=== PATIENT | male | born 1990 | race Caucasian/White ===

== ENCOUNTER 2024-08-16 18:44 | Emergency (ER) | payer SELFPAY ==
[2024-08-16 18:56] VITALS: BP 123/85; PULSE 70; RESP 20; TEMP 36.9; O2SAT 99; BMI 38.7
--- NOTE | 2024-08-16 18:58 | XRR_ITS ---
PROCEDURE INFORMATION: Exam: XR Chest Exam date and time: 08/16/2024 7:01 PM Age: 33 years old Clinical indication: Shortness of breath; Additional info: SOB TECHNIQUE: Imaging protocol: Radiologic exam of the chest. Views: 1 view. COMPARISON: No relevant prior studies available. FINDINGS: Lungs: Patient is rotated to the left. Equivocal reticular opacity noted at the left lung base. Lungs are otherwise clear. Pleural spaces: No pleural effusion. No pneumothorax. Heart/Mediastinum: Cardiac silhouette is normal in size for technique. Bones/joints: Age appropriate. XR/XR chest 1V portable [id number] IMPRESSION: Equivocal reticular opacity at the left lung base. Findings could reflect mild atelectasis or developing pneumonitis. Unfortunately, because patient is rotated to the left, findings could also be artifactual. Correlate with physical exam.
--- NOTE | 2024-08-16 18:58 | ECG_ITS ---
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
[2024-08-16 19:28] LABS: Hematocrit 43.8 % (37-53); Hemoglobin 14.80 g/dL (11.27-16.99); Mean Corpuscular HGB Conc 33.8 g/dL (30-55); Mean Corpuscular Hemoglobin 29.0 pg (27-33); Mean Corpuscular Volume 85.9 fl (82-101); Nucleated Red Blood Cells % 0 %; Platelet Count 306 10^3/cmm (157-399); Red Blood Count 5.10 10^6/uL (3.85-5.65); White Blood Count 10.68 10^3/uL (3.29-11.43)
[2024-08-16 19:46] LABS: Troponin(5th) Baseline < 6 ng/L (0-15)
[2024-08-16 19:50] LABS: Alanine Aminotransferase 22 U/L (0-41); Albumin Level 4.5 g/dL (3.5-5.2); Alkaline Phosphatase 66 U/L (40-130); Anion Gap 17.2 (5-19); Aspartate Amino Transferase 17 U/L (0-40); Blood Urea Nitrogen 14 mg/dL (6-20); Calcium 9.4 mg/dL (8.5-10.5); Carbon Dioxide 23 mmol/L (22-29); Chloride 105 mmol/L (98-107); Creatinine Clr Calc Pharmacy 173.7153; Globulin 2.4 g/dL (1.3-4.6); Glucose 84 mg/dL (65-115); Osmolality Calculated 292 mOsm/kg (285-295); Potassium 4.2 mmol/L (3.5-5.1); Sodium 141 mmol/L (136-145); Total Protein 6.9 g/dL (6.6-8.7)
[2024-08-16 21:18] VITALS: BP 124/70; PULSE 70; RESP 16; O2SAT 99
--- NOTE | 2024-08-16 21:33 | ECG_ITS ---
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 [id number]
[2024-08-16 21:54] LABS: Troponin 5 2HR < 6.0 ng/L (0-15); Troponin 5 2HR Delta 0 ABS# (0-10)
[2024-08-16 22:30] VITALS: BP 122/68; PULSE 61; RESP 16; O2SAT 97
--- NOTE | 2024-08-16 23:01 | ED_ITS ---
HPI - Chest Pain 2 General: Chief Complaint: Chest Pain Stated Complaint: CP Little SOB Time Seen by Provider: 08/16/24 21:29 History of Present Illness: 33-year-old male patient presents to the emergency department via EMS. Per EMS patient was [place] called EMS. Patient arrives to emergency department complaining of chest pain and shortness of breath. Patient denies any fever. Patient denies any cough or congestion. Patient denies any abdominal pain. Patient denies any back pain. Patient denies any abdominal pain. Related Data Allergies Allergy/AdvReac Type Severity Reaction Status Date / Time No Known Allergies Allergy Verified 08/16/24 19:00 Review of Systems 2 General: Reports: 10 or more systems reviewed and unremarkable except in HPI and below Physical Exam 2 Const: COMMON NORMALS: no acute distress, average body habitus, patient oriented x3 and alert HENMT: COMMON NORMALS: normocephalic and atraumatic HEAD & SCALP: n ormocephalic and atraumatic Neck/C-Spine: COMMON NORMALS: full ROM, no lymphadenopathy, no meningeal signs and no JVD Chest: COMMONS NORMALS: normal inspection of the chest and normal palpation of entire chest wall (Tenderness across chest wall) Resp: COMMON NORMALS: normal respiratory effort, No retractions and clear to auscultation bilaterally AUSCULTATION: clear to auscultation bilaterally Cardio: COMMON NORMALS: no JVD, regular rate and regular rhythm RATE: r egular rate RHYTHM: regular rhythm GI: COMMON NORMALS: Normal to inspection, nondistended, normoactive bowel sounds present, Soft to palpation and non-tender PALPATION: Yes Soft to palpation : COMMON NORMALS: Yes no CVA tenderness BLADDER/KIDNEY EXAM: Yes no CVA tenderness Back/Pelvis: COMMON NORMALS: no CVA tenderness, thoracic and lumbar spine normal to inspection, no thoracic nor lumbar tenderness and thoraco-lumbar ROM normal Extremity: GENERAL: Yes normal exam except as noted Neuro: COMMON NORMALS: patient oriented x3, CN's II-XII intact bilaterally, moves all extremities, no focal motor deficits and no sensory deficits noted SENSORIUM/ORIENTATION: Yes alert MENINGEAL SIGNS: Yes no meningeal signs Psych: COMMON NORMALS: mental status grossly normal, Normal thought process present, cooperative, normal affect, speech normal, activity/motor behavior normal, denies hallucinations, denies homicidal ideation and denies suicidal ideation SPEECH: Yes normal speech THOUGHT PROCESS: Normal thought process present Skin: COMMON NORMALS: no rashes or lesions noted GENERAL SKIN EXAM: no rashes or lesions noted and elasticity normal Course 2 Vital Signs: Vital signs: Vital Signs Temperature 98.5 F 08/16/24 18:56 Pulse Rate 61 08/16/24 22:30 Respiratory Rate 16 08/16/24 22:30 Blood Pressure 122/68 08/16/24 22:30 Pulse Oximetry 97 08/16/24 22:30 Oxygen Delivery Me thod Room Air 08/16/24 22:30 MDM - Chest Pain Medical Decision Making Patient is well-appearing nontoxic in no acute distress. 33-year-old male patient presents to the emergency department via EMS. Per EMS patient was [place] residence called EMS. Patient arrives to emergency department complaining of chest pain and shortness of breath. Patient denies any fever. Patient denies any cough or congestion. Patient denies any abdominal pain. Patient denies any back pain. Patient denies any abdominal pain. Patient's labs are nonconcerning patient's delta [place] was within normal limits EKG reveals no ST elevation or depression this making cardiac ischemia unlikely. Patient did have some tenderness along the chest wall diffuse tenderness upon palpation patient admits to lifting heavy things for the last several days these findings are consistent with costochondritis. Patient was given IV dose of Toradol patient states this did help with his pain. Pain is reproducible and only when chest wall is palpated. Chest x-ray is within normal limits there is no acute findings or rib fractures noted there is no evidence of a pneumothorax. Patient is not tachycardic patient is afebrile patient does not have any evidence of hypoxia I do not feel patient would benefit from any additional emergent testing at this time I have discussed with patient return precautions and follow-up as well as home care patient is medically cleared and appropriate for discharge Lab Data 08/16/24 19:14 08/16/24 19:14 Radiology Impressions Chest X-Ray 08/16/24 18:58 IMPRESSION: Equivocal reticular opacity at the left lung base. Findings could reflect mild atelectasis or developing pneumonitis. Unfortunately, because patient is rotated to the left, findings could also be artifactual. Correlate with physical exam. Laboratory Results WBC 10.68 10^3/uL (3.29-11.43) 08/16/24 19:14 RBC 5.10 10^6/uL (3.85-5.65) 08/16/24 19:14 Hgb 14.80 g/dL (11.27-16.99) 08/16/24 19:14 Hct 43.8 % (37-53) 08/16/24 19:14 MCV 85.9 fl (82-101) 08/16/24 19:14 MCH 29.0 pg (27-33) 08/16/24 19:14 MCHC 33.8 g/dL (30-55) 08/16/24 19:14 RDW 13.4 % (12.1-15.1) 08/16/24 19:14 Plt Count 306 10^3/cmm (157-399) 08/16/24 19:14 MPV 10.6 fL (7.4-10.4) H 08/16/24 19:14 Neut % (Auto) 67.6 % 08/16/24 19:14 Lymph % (Auto) 23.1 % 08/16/24 19:14 [place] % (Auto) 7.7 % 08/16/24 19:14 Eos % (Auto) 1.0 % 08/16/24 19:14 Baso % (Auto) 0.3 % 08/16/24 19:14 Neut # (Auto) 7.22 10^3/uL (1.8-7.7) 08/16/24 19:14 Lymph # (Auto) 2.5 10^3/uL (0.8-4.8) 08/16/24 19:14 [place] # (Auto) 0.8 10^3/uL (0.2-0.9) 08/16/24 19:14 Eos # (Auto) 0.1 10^3/uL (0.0-0.8) 08/16/24 19:14 Baso # (Auto) 0.0 10^3/uL (0.0-0.1) 08/16/24 19:14 Nucleated RBC % (auto) 0 % 08/16/24 19:14 Nucleated RBCs # 0.0 /100WBC 08/16/24 19:14 Sodium 141 mmol/L (136-145) 08/16/24 19:14 Potassium 4.2 mmol/L (3.5-5.1) 08/16/24 19:14 Chloride 105 mmol/L (98-107) 08/16/24 19:14 Carbon Dioxide 23 mmol/L (22-29) 08/16/24 19:14 Anion Gap 17.2 (5-19) 08/16/24 19:14 BUN 14 mg/dL (6-20) 08/16/24 19:14 Creatinine 0.7 mg/dL (0.7-1.2) 08/16/24 19:14 GFR Calculation 129.9 mL/min (90-130) 08/16/24 19:14 Glucose 84 mg/dL (65-115) 08/16/24 19:14 Calculated Osmolality 292 mOsm/kg (285-295) 08/16/24 19:14 Calcium 9.4 mg/dL (8.5-10.5) 08/16/24 19:14 Total Bilirubin 1.1 mg/dL (0.15-1.2) 08/16/24 19:14 AST 17 U/L (0-40) 08/16/24 19:14 ALT 22 U/L (0-41) 08/16/24 19:14 Alkaline Phosphatase 66 U/L (40-130) 08/16/24 19:14 Troponin T Baseline < 6 ng/L (0-15) 08/16/24 19:14 Troponin T 120 Minute < 6.0 ng/L (0-15) 08/16/24 21:28 Delta Troponin T 0 ABS# (0-10) 08/16/24 21:28 Total Protein 6.9 g/dL (6.6-8.7) 08/16/24 19:14 Albumin 4.5 g/dL (3.5-5.2) 08/16/24 19:14 Globulin 2.4 g/dL (1.3-4.6) 08/16/24 19:14 All radiology interpretation(s) finalized by discharge Discharge Plan Discharge Patient Disposition: Home Clinical Impression: Costalchondritis Condition: Stable Discharge Orders: Discharge ED (Routine); Ordered 08/16/24 Ordered By: Mary Jo Del Rosario Discharge Diet: Advance as tolerated Discharge Activity: Increase activity as tolerated Patient Instructions: Costochondritis (DC), Opioid Safety, Pain Management, Patient Portal & [place] Instructions Activity Restrictions/Additional Instructions: Please follow-up with primary care physician May take Tylenol or Motrin per label directions for pain Return to ER if l your doctor if: You have a fever. The painful areas of your chest look swollen, red, and feel warm to the touch. You cannot sleep because of the pain. You have questions or concerns about your condition or care. 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
[2024-08-16 23:15] VITALS: BP 122/75; PULSE 61; RESP 16; O2SAT 98
== END 2024-08-16 23:16 | disposition home or self-care (01) ==
PROVIDERS: Emergency Medicine; Emergency Provider Registered Nurse
DX: M94.0 Chondrocostal junction syndrome [Tietze] (principal)
CPT/HCPCS: 36415; 71045; 80053; 84484; 85025; 93005; 93010; 96374; 99285; J1885